=== PATIENT | female | born 2000 | race Hispanic/Latino ===

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

== ENCOUNTER 2021-04-19 23:24 | Emergency (ER) | payer OTHER ==
[2021-04-20] MEDS ORDERED: HYDROcodone/Acetaminophen 10/325 mg Tablet ONE
== END 2021-04-20 00:30 | disposition home or self-care (01) ==
LOC: ERS 23:24
DX: S70.02XA Contusion of left hip, initial encounter (principal); M54.42 Lumbago with sciatica, left side; W01.10XA Fall on same level from slipping, tripping and stumbling with subsequent striking against unspecified object, initial encounter
CPT/HCPCS: 72100; 72170

== ENCOUNTER 2021-10-07 04:05 | Emergency (ER) | payer OTHER, SELFPAY ==
[2021-10-07] MEDS ORDERED: Ibuprofen 800 MG TAB ONE (04:20)
[2021-10-07 12:36] LABS: SARS-CoV-2 PCR by NAA Not Detected (NotDetected)
== END 2021-10-07 05:00 | disposition home or self-care (01) ==
LOC: ERS 04:05
DX: J06.9 Acute upper respiratory infection, unspecified (principal); G51.0 Bell's palsy; Z20.822 Contact with and (suspected) exposure to COVID-19
CPT/HCPCS: 71045; 87081; 87430; 87804; 93005; U0003; U0005

== ENCOUNTER 2023-03-26 02:14 | Emergency (ER) | payer SELFPAY ==
[2023-03-26 03:11] LABS: Bacteria/HPF None Seen HPF (None Seen); Bilirubin Negative (Negative); Blood, Urine Negative (Negative); CAUTI Indications for Culture Dysuria,urgency,freq; Clarity Clear (Clear); Glucose, Urine (Dipstick) Normal (Negative); Ketone, Urine Negative (Negative); Leukocyte Negative Leu/uL (Negative); Nitrite Negative (Negative); Protein, Urine (Dipstick) Negative (Neg-Trace); RBC/HPF 0-3 HPF (0-3); Specific Gravity, Urine 1.024 (1.002-1.036); Squamous Epithelial 0-3 HPF (0-3); Urobilinogen Normal mg/dL (Less than 2); WBC/HPF 0-3 HPF (0-3); pH, Urine 6.5 (5.0-9.0)
[2023-03-26 03:12] LABS: Pregnancy Test - Urine (BHCG) Negative (Negative)
[2023-03-26 03:13] LABS: Pregu Control Background? CLEAR/WHITE (CLR/WHITE); Pregu Control Bar Appear? YES (CONTROL BAR); Specific Gravity 1.024 (1.002-1.036); Urine Culture Reflex No No
[2023-03-26] MEDS ORDERED: Lidocaine 1% MPF 2 ML VIAL ONE (03:18)
[2023-03-26] MEDS ORDERED: cefTRIAXone (ROCEPHIN) 500 MG VIAL ONE (03:19)
[2023-03-26 08:57] LABS: GC by PCR, Vaginal Swab Not Detected (NotDetected)
== END 2023-03-26 04:00 | disposition home or self-care (01) ==
LOC: ERS 02:14
DX: Z11.3 Encounter for screening for infections with a predominantly sexual mode of transmission (principal); N89.8 Other specified noninflammatory disorders of vagina
CPT/HCPCS: 81001; 81025; 87480; 87510; 87591; 87660; 96372; 99283; J0696

== ENCOUNTER 2025-01-08 04:12 | Emergency (ER) | payer OTHER, SELFPAY ==
[2025-01-08] MEDS ORDERED: Acetaminophen 500 MG TAB ONE (04:31)
[2025-01-08 04:39] LABS: #Basophils 0.04 10x3/uL (0.0-0.2); #Eosinophils 0.07 10x3/uL (0.0-0.7); #Monocytes 0.92 10x3/uL (0.11-0.59); #Neutrophils 7.07 10x3/uL (1.40-6.50); %Basophils 0.4 % (0.0-1.0); %Eosinophils 0.7 % (0.0-10.0); %Lymphocytes 20.9 % (21.0-51.0); %Monocytes 8.9 % (0.0-10.0); %Neutrophils 68.3 % (42.0-75.0); Hematocrit 42.1 % (36.0-47.0); Hemoglobin 14.4 g/dL (12.0-16.0); Mean Corpuscular Hemoglobin 28.2 pg (27.0-31.0); Mean Corpuscular Volume 82.4 fL (78.0-98.0); Platelet Count 267 10x3/uL (130-400); Red Blood Cell (RBC) Count 5.11 mill/uL (4.20-5.40); White Blood Cell (WBC) Count 10.34 10x3/uL (4.8-10.8)
[2025-01-08 05:07] LABS: Lipase 606 U/L (8-78)
[2025-01-08 05:12] LABS: ALT (SGPT) 20 U/L (Less than 34); AST (SGOT) 18 U/L (11-34); Albumin 3.2 g/dL (3.1-4.5); Alkaline Phosphatase 136 U/L (40-110); Anion Gap 15 mmol/L (10-20); BUN (Urea Nitrogen) 9 mg/dL (7.0-18.7); Bilirubin, Total 0.2 mg/dL (0.3-1.2); Calc. Creatinine Clearance 0 mL/min (70-130); Calcium 9.1 mg/dL (7.8-10.44); Carbon Dioxide 23 mmol/L (22-29); Chloride 106 mmol/L (98-107); Globulin 4.2 g/dL (2.4-3.5); Glucose 90 mg/dL (70-105); Magnesium 1.9 mg/dL (1.6-2.6); Potassium 3.6 mmol/L (3.5-5.1); Sodium 140 mmol/L (136-145)
[2025-01-08 06:47] LABS: CAUTI Indications for Culture Pregnancy; Glucose, Urine (Dipstick) 50 mg/dL (Negative); Leukocyte 250 Leu/uL (Negative); Mucous/LPF Rare LPF (<2+); Protein, Urine (Dipstick) 10 mg/dL (Neg-Trace); RBC/HPF 0-3 HPF (0-3); Specific Gravity, Urine 1.023 (1.002-1.036)
[2025-01-08 06:49] LABS: Bacteria/HPF 1+ HPF (None Seen)
[2025-01-08 06:52] LABS: Urine Culture Reflex Yes Yes
== END 2025-01-08 09:19 | disposition home or self-care (01) ==
LOC: ERS 04:12
DX: O99.612 Diseases of the digestive system complicating pregnancy, second trimester (principal); K80.20 Calculus of gallbladder without cholecystitis without obstruction; O99.891 Other specified diseases and conditions complicating pregnancy; R74.8 Abnormal levels of other serum enzymes; Z3A.25 25 weeks gestation of pregnancy
CPT/HCPCS: 36415; 76705; 76770; 76805; 80053; 81001; 83690; 83735; 84702; 85025; 86850; 86900; 86901; 87086; 93005; J2543